=== PATIENT | male | born 1985 | race Caucasian/White ===

== ENCOUNTER 2020-05-13 21:10 | Emergency (ER) | payer BC ==
[~2020-05-13] VITALS: Ht 185.4 cm; Wt 136.4 kg
[2020-05-13 21:45] LABS: BASO # 0.1 (0.0-0.2); BASO % 0.7 % (0.0-2.0); EOS # 0.1 (0.0-0.7); EOS % 1.5 % (0-4.0); GRAN # 5.2 (1.4-6.5); GRAN % 71.7 % (42.2-75.2); HEMATOCRIT 47.4 % (42.0-52.0); HEMOGLOBIN 16.7 g/dl (13.5-18.0); LYMPH # 1.3 (1.2-3.4); LYMPH % 17.1 % (20.0-51.0); MEAN CELL VOLUME 91 fl (80.0-100.0); MEAN CORPUSCULAR HEMOGLOBIN 32 pg (27.0-31.0); MEAN CORPUSCULAR HGB CONC 35 g/dl (33.0-37.0); MEAN PLATELET VOLUME 10.3 fl (7.4-10.4); MONO # 0.6 (0.1-0.6); MONO % 8.6 % (1.7-9.3); PLATELET COUNT 207 K/mm3 (130-400); RED BLOOD COUNT 5.22 M/mm3 (4.20-5.60); REDCELL DISTRIBUTION WIDTH-CV 12.3 % (11.5-14.5)
[2020-05-13 21:56] LABS: ALANINE AMINOTRANSFERASE 43 U/L (4-49); ALBUMIN 4.9 gm/dL (3.5-5.0); ALKALINE PHOSPHATASE 81 U/L (50-136); ANION GAP 9 mmol/L (7-16); AST,SGOT 35 U/L (15-37); BILIRUBIN,TOTAL 0.7 mg/dL (0.0-1.0); BLOOD UREA NITROGEN 10 mg/dL (9-20); CARBON DIOXIDE 23 mmol/L (22-30); CHLORIDE 103 mmol/L (98-107); CREATININE, serum 0.75 (0.66-1.25); GLUCOSE 113 mg/dL (74-106); INR 0.9 (0.8-3.0); LIPASE 356 U/L (23-300); POTASSIUM 4.2 mmol/L (3.4-5.0); PROTHROMBIN TIME 10.2 SECONDS (9.7-12.8); SODIUM 135 mmol/L (137-145); TOTAL PROTEIN 8.2 gm/dL (6.4-8.2)
[2020-05-13 22:21] LABS: TROPONIN-I < 0.012 ng/mL (0.000-0.035)
[2020-05-13] MEDS ORDERED: ATIVAN 1MG T1 MG/TAB PO ×2 (23:13→23:18)
[2020-05-14 01:05] VITALS: BP 142/98; PULSE 74; TEMP 97.9
== END 2020-05-14 01:08 | disposition home or self-care (01) ==
LOC: COL.ER 21:10
PROVIDERS: Emergency Medicine
DX: R07.9 Chest pain, unspecified (principal); R00.0 Tachycardia, unspecified; R06.02 Shortness of breath; I10 Essential (primary) hypertension; F17.200 Nicotine dependence, unspecified, uncomplicated
CPT/HCPCS: J2060; J7030

== ENCOUNTER 2020-05-17 21:19 | Emergency (ER) | payer BC ==
[~2020-05-17] VITALS: Ht 185.4 cm; Wt 136.4 kg
[~2020-05-17 21:19] MED LIST: ATIVAN 1MG T1 MG/TAB PO
[2020-05-17 21:25] VITALS: TEMP 98.3
[2020-05-17 22:00] LABS: BASO # 0.1 (0.0-0.2); BASO % 0.8 % (0.0-2.0); EOS # 0.2 (0.0-0.7); GRAN # 3.5 (1.4-6.5); GRAN % 54.2 % (42.2-75.2); HEMATOCRIT 45.2 % (42.0-52.0); HEMOGLOBIN 15.7 g/dl (13.5-18.0); LYMPH # 1.8 (1.2-3.4); LYMPH % 28.3 % (20.0-51.0); MEAN CELL VOLUME 93 fl (80.0-100.0); MEAN CORPUSCULAR HEMOGLOBIN 32 pg (27.0-31.0); MEAN CORPUSCULAR HGB CONC 35 g/dl (33.0-37.0); MEAN PLATELET VOLUME 10.6 fl (7.4-10.4); MONO # 0.8 (0.1-0.6); MONO % 13.2 % (1.7-9.3); PLATELET COUNT 180 K/mm3 (130-400); RED BLOOD COUNT 4.85 M/mm3 (4.20-5.60); REDCELL DISTRIBUTION WIDTH-CV 12.3 % (11.5-14.5)
[2020-05-17 22:03] LABS: ALANINE AMINOTRANSFERASE 42 U/L (4-49); ALBUMIN 4.6 gm/dL (3.5-5.0); ALKALINE PHOSPHATASE 76 U/L (50-136); ANION GAP 9 mmol/L (7-16); AST,SGOT 36 U/L (15-37); BILIRUBIN,TOTAL 0.5 mg/dL (0.0-1.0); BLOOD UREA NITROGEN 11 mg/dL (9-20); CALCIUM 9.4 mg/dL (8.4-10.2); CARBON DIOXIDE 29 mmol/L (22-30); CHLORIDE 102 mmol/L (98-107); CREATININE, serum 0.81 (0.66-1.25); GLUCOSE 98 mg/dL (74-106); POTASSIUM 3.8 mmol/L (3.4-5.0); SODIUM 139 mmol/L (137-145); TOTAL PROTEIN 7.4 gm/dL (6.4-8.2)
[2020-05-17 22:15] LABS: TROPONIN-I < 0.012 ng/mL (0.000-0.035)
[2020-05-18 02:26] VITALS: BP 128/68; PULSE 89
== END 2020-05-18 03:15 | disposition home or self-care (01) ==
LOC: COL.ER 21:19
PROVIDERS: Family Medicine
DX: R07.9 Chest pain, unspecified (principal); I10 Essential (primary) hypertension; Z87.891 Personal history of nicotine dependence; Z79.82 Long term (current) use of aspirin
CPT/HCPCS: J0360